=== PATIENT | female | born 1980 | race Caucasian/White ===

== ENCOUNTER → 2017-05-27 | Outpatient (CLI) | payer OTHER ==
[~2017-05-27] VITALS: Ht 160 cm; Wt 62.1 kg
[~2017-05-27] MED LIST: ASPIR 8181 MG PO; CALCIUM 500 +1 EAC5 PO; CLARITIN10 MG PO; FISH OIL 1,001000 M2 PO; FOLIC ACID1 MG PO; GINGER ROOT550 MG PO; MAGNESIUM400 M1 PO; SYNTHROID150 MCG PO; VITAMIN D1000 UNI1 PO
--- NOTE | ~2017-05-27 | P ---
[facility] [place] [address] PROCEDURE REPORT Name: ALEJANDRA FRAUSTO Room #: [facility].#: [id number] Admission: 05/27/17 Attend Phys: Ken Traore Discharge: Date of : 84 Report #: [id number] THIS REPORT FOR: //name// CC: [facility] DATE OF SERVICE: 05/27/2017 PROCEDURE PERFORMED: Colonoscopy. HISTORY OF PRESENT ILLNESS: The patient is a 37-year-old female with a history of colon polyps 5 years ago. She is here for a 5-year followup. She denies any symptoms. No family history of colon cancer. DESCRIPTION OF PROCEDURE: The risks and benefits of the procedure were explained to the patient, those risks including but not limited to bleeding, perforation, the risk of sedation. She understood these risks and gave informed consent. Sedation was given using propofol per anesthesia. Next, a digital rectal exam was initially performed, which was normal. Next, using a standard [place] colonoscope, the scope was placed in the patient's anus and advanced under direct vision to the cecum. The overall prep was excellent. The cecum and ileocecal valve were normal in appearance. The ascending, transverse and descending colon were all normal. Sigmoid colon was normal. The rectal mucosa was normal. On retroflexion, no abnormalities were noted. The scope was then withdrawn and the procedure terminated. The patient tolerated the procedure well. IMPRESSION: Normal colonoscopy. RECOMMENDATIONS: Repeat colonoscopy in 10 years. Thank you for allowing me to participate in her care. <ELECTRONICALLY SIGNED> By: Ken Edmond MD 05/28/17 [id number] Ken Edmond MD /nt
== END | disposition home or self-care (01) ==
LOC: GI 08:36
DX: Z09 Encounter for follow-up examination after completed treatment for conditions other than malignant neoplasm (principal); Z86.010 Personal history of colon polyps
CPT/HCPCS: 62110; 62900